=== PATIENT | male | born 1960 | race Caucasian/White ===

== ENCOUNTER 2016-11-21 21:07 | Emergency (ER) | payer MEDICAID ==
--- NOTE | ~2016-11-21 | ER ---
PATIENT'S NAME: SILVINA DELGADO [facility] AGE: 56 Y [address] ROOM: [place] [address] LOCATION: ED ADMIT DATE: 11/21/2016 ER/Outpatient Report DISCHARGE DATE: 11/21/2016 FAMILY PHYSICIAN: Roberto Corona MD ATTENDING PHYSICIAN: Julio Meng Time of Evaluation: 2125 hours. CHIEF COMPLAINT: Right low back pain. HISTORY OF PRESENT ILLNESS: The patient is a 56-year-old male, patient of Dr. Corona. The patient said over the last week, he has had increased pain in his right low back. The patient has a history of chronic pain and has recently been advised referral to a pain specialist. The patient had been given Percocet in the past by Dr. Corona, which he said he would take one in the morning and one at night. MEDICAL HISTORY: Includes chronic back pain. He does have a history of prostate cancer, which he has recently had a PSA done, which has remained stable. He denied any metastatic disease; however, he was treated with radiation. SOCIAL HISTORY: Smoker of 1/2 pack a day, which he has done for 40 years. Has a history of substance abuse including meth; however, quit about 3 years ago. Currently on social security disability due to his chronic pain. REVIEW OF SYSTEMS: GENERAL: He denies recent fevers or chills. HEAD AND EENT: No complaints of headache or visual changes. RESPIRATORY: No cough. He does get short of breath due to his smoking. CARDIOVASCULAR: No chest pain. MUSCULOSKELETAL: Includes chronic myalgia and joint pain. Pain tonight is mostly localized to his right low lumbar area. NEURO: Denies any recent numbness to his lower extremities. He did state he does have some numbness in his hands at times. OBJECTIVE FINDINGS: VITAL SIGNS: He had a blood pressure of 126/87, his temperature was 97, his respiratory rate 18, and his pulse was 103, and his O2 saturations 99%. GENERAL APPEARANCE: He is alert, but somewhat anxious. HEAD AND EENT: No exostosis was noted. His sclerae were clear. His buccal membranes were moist. LUNGS: He had good breath sounds bilaterally. PATIENT'S NAME: SILVINA DELGADO [facility] AGE: 56 Y [address] ROOM: [place], [place] [address] LOCATION: [facility] ADMIT DATE: 11/21/2016 ER/Outpatient Report DISCHARGE DATE: 11/21/2016 FAMILY PHYSICIAN: Roberto Corona MD ATTENDING PHYSICIAN: Julio Meng BACK: He had some tenderness on the right lumbar area. He did have a positive axial load. NEUROLOGIC: Sensation in the lower extremities appeared grossly normal. ASSESSMENT: Right low back pain. PLAN: He was given Toradol 60 IM. Recommend that he use ice 10-15 minutes every 2 hours tonight. Due to his history of prostate cancer and chronic pain, recommend that he follow up with Dr. Corona tomorrow. The patient verbalized understanding of our recommendations and plan and agreed. JAVIER STONE FOR JULIO MENG MD SWJ/power /[id number] d: 11/22/16 0425 t: 11/26/16 1010, OUTPATIENT REPORT
== END 2016-11-21 21:49 | disposition disaster alternative care site (69) ==
LOC: GMED 21:07
DX: M54.5 Low back pain (principal); F17.210 Nicotine dependence, cigarettes, uncomplicated; Z85.46 Personal history of malignant neoplasm of prostate; Z88.0 Allergy status to penicillin; Z79.891 Long term (current) use of opiate analgesic
CPT/HCPCS: J1885